=== PATIENT | female | born 1985 | race Two or more races ===

== ENCOUNTER 2023-01-11 16:10 | Outpatient (CLI) | payer OTHER | END 2023-01-11 16:14 | disposition home or self-care (01) | LOC: SONOGRAMA 16:10 | PROVIDERS: ATTEND Pathology Anatomic Pathology & Clinical Pathology | DX: C73 Malignant neoplasm of thyroid gland (principal); E04.1 Nontoxic single thyroid nodule; R59.0 Localized enlarged lymph nodes ==

== ENCOUNTER 2023-05-17 12:17 | Outpatient (CLI) | payer OTHER | END 2023-05-17 12:29 | disposition home or self-care (01) | LOC: SONOGRAMA 12:17 | PROVIDERS: ATTEND Otolaryngology | DX: C73 Malignant neoplasm of thyroid gland (principal) ==

== ENCOUNTER 2023-06-18 06:20 | Inpatient (IN) | payer OTHER ==
[~2023-06-18] VITALS: Ht 154.9 cm; Wt 54.9 kg
[~2023-06-18 06:20] MED LIST: FOLIC ACID0.8 M1 PO; IRON18 MG PO; LITHIUM CARBON150 MG PO; PROZAC20 MG PO; ZOCOR20 MG PO
== END 2023-06-19 14:25 | disposition home or self-care (01) | DRG 626 ==
LOC: CIR.AMB 06:20 → SURG 18:38 → SURH 06-25 07:45 → EDSTATUS 06-25 07:45
PROVIDERS: ADMIT Otolaryngology; ATTEND Otolaryngology
PROC: 07T10ZZ Resection of Right Neck Lymphatic, Open Approach (ICD-10-PCS; 2023-06-18)
PROC: 0GTK0ZZ Resection of Thyroid Gland, Open Approach (ICD-10-PCS; principal; 2023-06-18 10:00)
DX: C73 Malignant neoplasm of thyroid gland (principal); C77.0 Secondary and unspecified malignant neoplasm of lymph nodes of head, face and neck; Z20.822 Contact with and (suspected) exposure to COVID-19

== ENCOUNTER 2023-08-08 11:03 | Outpatient (CLI) | payer OTHER | END 2023-08-08 11:04 | disposition home or self-care (01) | LOC: NUCLEAR 11:03 | PROVIDERS: ATTEND Internal Medicine Sports Medicine | DX: C73 Malignant neoplasm of thyroid gland (principal); E89.0 Postprocedural hypothyroidism ==

== ENCOUNTER 2023-08-13 11:22 | Outpatient (CLI) | payer OTHER | END 2023-08-13 11:27 | disposition home or self-care (01) | LOC: NUCLEAR 11:22 | PROVIDERS: ATTEND Internal Medicine Sports Medicine | DX: C73 Malignant neoplasm of thyroid gland (principal); E89.0 Postprocedural hypothyroidism ==